=== PATIENT | male | born 1935 | race Caucasian/White ===

== ENCOUNTER 2017-02-25 09:13 | Inpatient (IN) | payer BC ==
--- NOTE | ~2017-02-25 | CN ---
Consultation Report [facility] [address] [place]. [address] NAME: OLIVER CAMACHO : 39 STATUS : ADM IN [facility]#: [id number] AGE: 81 ADM/REG DATE : 02/25/17 MR#: [id number] REPORT SERV DATE: 02/27/17 DICTATED BY: ASHTYN PRIETO DATE: 02/26/17 REPORT STATUS : Draft TRANSCRIBED BY: MODL DATE: 02/26/17 PULMONARY CONSULT DATE OF CONSULTATION: 02/26/2017 REASON FOR CONSULTATION: Repeat exacerbation of bronchiectasis. CHIEF COMPLAINT: Not feeling well with coughing up of sputum minimally. HISTORY OF PRESENT ILLNESS: Mr. Camacho is a 81-year-old gentleman with a past medical history noted below, who was followed by Dr. Pastor for underlying bronchiectasis and COPD. However, the patient is not a smoker. The patient states that he has had repeat pneumonias and has had to have a bronchoscopy around five years ago to clear out the mucus and so forth. He feel that he is back to this baseline in which he needs a bronchoscopy. He has been hypoxic at home. Not feeling well. He is getting antibiotics, but is unable to clear his secretions. Otherwise, he has been coughing. Minimal fevers are noted, however. CT scan shows diffuse right greater than left bronchiectasis with mucus in the bronchiectatic bronchi. Otherwise, no further complaints. PAST MEDICAL HISTORY: Bronchiectasis, however, the patient is unable to recall many other abnormalities. He does have some hearing loss and sleep apnea. HOME MEDICATIONS: The patient reports albuterol, Advair, Spiriva, Robitussin. ALLERGIES: NO KNOWN DRUG ALLERGIES. FAMILY HISTORY: The patient denies having any family history with regard to pulmonary family history. SOCIAL HISTORY: The patient is . The patient states he is a lifelong nonsmoker. No alcohol. REVIEW OF SYSTEMS: All pertinent review of systems reviewed and is otherwise negative. PHYSICAL EXAMINATION: VITAL SIGNS: Afebrile, heart rate 80s, respiratory rate normal, oxygen saturation around 97% on 2 L nasal cannula, blood pressure anywhere between 110 and 150. GENERAL: The patient is alert and oriented, no acute distress. HEENT: Mid neck is supple. No JVD. No lymphadenopathy. PULMONARY: Mild rhonchorous breath sounds, but otherwise, good air movement. CARDIAC: Regular rate, no murmurs. ABDOMEN: Soft, nontender, and nondistended. EXTREMITIES: No lower extremity edema. The patient is able to move all extremities without Consultation Report [address] [place]. [address] NAME: OLIVER CAMACHO : 39 STATUS : ADM IN [facility]#: [id number] AGE: 81 ADM/REG DATE : 02/25/17 MR#: [id number] REPORT SERV DATE: 02/27/17 DICTATED BY: ASHTYN PRIETO DATE: 02/26/17 REPORT STATUS : Draft TRANSCRIBED BY: MODJose Luis DATE: 02/26/17 any difficulty. LABORATORY EXAMINATION: No leukocytosis. INR 1.3. Procalcitonin negative. Good kidney function. IMAGING: As noted above. ASSESSMENT AND PLAN: Mr. Oliver Camacho is a 81-year-old gentleman with a past medical history of bronchiectasis who comes in with a bronchiectasis exacerbation. He has had abnormal microbiological studies in the past. The patient is currently on Rocephin and azithromycin along with Spiriva and albuterol. Our recommendations are below: 1. Continue mucociliary clearance with Dulera, albuterol, Spiriva. The patient has pretty good mobility. 2. Continue antibiotics with Rocephin and azithromycin. 3. We will conduct a bronchoscopy for airway clearance along with culture data. We will make this patient n.p.o. after midnight. Thank you very much for this consultation, may consider a flutter valve therapy inpatient. HFQ/MODL Ashtyn Prieto MD / [id number] CC: Bo Plascencia D.O. F.A.C.P.
--- NOTE | ~2017-02-25 | OP ---
Record Of Operation [facility] [address] [place]. [address] NAME: CECIL MCNAIR : 39 STATUS : ADM IN PAT#: [id number] AGE: 81 ADM/REG DATE : 02/25/17 MR#: [id number] REPORT SERV DATE: 02/27/17 DICTATED BY: ASHTYN PRIETO DATE: 02/27/17 REPORT STATUS : Draft TRANSCRIBED BY: MODL DATE: 02/27/17 DATE OF PROCEDURE: 02/27/2017 PROCEDURE: Bronchoscopy for bronchoalveolar lavage. INDICATION FOR PROCEDURE: The patient comes in with a bronchiectasis exacerbation, difficulty coughing up secretions. SEDATION: The patient underwent conscious sedation by Anesthesia. PROCEDURE NOTE: The patient was brought down to the bronchoscopy suite, we gave him nebulized lidocaine. Once we achieved good anesthetic control, the patient was given moderate sedation. We then were able to place the bronchoscope through the vocal cords. Prior to that, he had upper airway obstruction and patient has a known history of sleep apnea. We were able to insert lidocaine through the vocal cords into the airways and anesthetized the trachea. He had significant thick mucus plugs on the right side. Left side was essentially clear. We cleared the left-side and attempted to remove the mucus plugs. Prior to removing, we were able to obtain a bronchoalveolar lavage of the right upper lobe as we moved around the mucus plugs and obtained adequate sample. We then removed the trap and proceeded to removing the mucus plugs. They were very tenacious and difficult to remove. It took merely at 10 minutes to remove the mucus plugs. The right upper lobe mucus plug was removed by suction. With regard to the right middle lobe mucus plug, we almost use the forceps biopsy, but we were able to dislodge that without any use of forceps biopsy. However, after we removed the mucus plug, the patient had significant amount of secretions that were drained into the airways, which were suctioned, and BAL was obtained also from the right middle lobe for further culture data. We were able to completely remove all the central airway mucus plugs and the majority of secretions coming from the right upper lobe and right middle lobe. We then completed the procedure. Post procedure, the patient had significant amount of wheezing for which DuoNeb therapy, breathing treatment, did help reduce his bronchospastic change. OUTCOME: Successful bronchoscopy for bronchoalveolar lavage and mucus plug removal. HFQ/MODL Ashtyn Prieto MD / [id number] CC: Bo Bustillo D.O. F.A.C.P.
--- NOTE | ~2017-02-25 | DS ---
Discharge Summary [facility] [address] [place]. [address] NAME: CECIL MCNAIR : 39 STATUS : DIS IN PAT#: [id number] AGE: 81 ADM/REG DATE : 02/25/17 MR#: [id number] REPORT SERV DATE: 03/01/17 DICTATED BY: BALJINDER SMITH DATE: 02/28/17 REPORT STATUS : Draft TRANSCRIBED BY: MODL DATE: 02/28/17 ADMISSION DATE: 02/25/2017 DISCHARGE DATE: 02/28/2017 OUTPATIENT [facility]: Dr. Haywood CONSULTING PHYSICIAN: Dr. Prieto for Pulmonary. FINAL DIAGNOSES: 1. Acute hypoxic respiratory failure, improved. 2. Bronchiectasis with mucus plugging, status post washing. 3. Right-sided pneumonia. 4. Chronic obstructive pulmonary disease. 5. Obstructive sleep apnea. 6. Iron-deficiency anemia. DIAGNOSTIC EXAMS: Chest x-ray showing diffuse right lung infiltrate indicating possible pneumonia. CAT scan of the chest showing mucus plugging with consolidation in the right middle lobe. Additional regions of bronchiectasis with mucus plugging and airspace disease in the right lung apex. Stable borderline paratracheal lymph nodes. Small right pleural effusion. Large hiatal hernia. COPD. Repeat chest x-ray showing stable right lung infiltrate. HOSPITAL COURSE: Please refer to the H and P done by Dr. Calhoun dated on 02/25/2017. Briefly, this is a 81-year-old male with bronchiectasis, comes in with shortness of breath. The patient has been having chronic cough for years and has been having worsening cough for weeks. There was an increase in shortness of breath, but no fever. He went to the emergency room, found to be in acute hypoxic respiratory failure. The patient was given oxygen, and we got Pulmonary involved, and they did a bronchoscopy. They had a bronchoalveolar lavage and mucus plug removal, and according to him, it took him a long time to try to get rid of the mucus plugging and at the back of which there is some pus that he tried to remove. The patient was initially placed on broad-spectrum antibiotics. The bronchial washing revealed sparse gram-negative izzy and the patient clinically improved. We got clearance now from Pulmonary for the patient to be discharged on quinolones, and the patient will follow up with his Dr. Dannie Palma and Dr. Haywood in a week and in a month respectively. The patient will be on the following medications. Multivitamin once a day, Spiriva one capsule inhaled a day, ProAir p.r.n., Advair 500/50 one puff twice a day, Proventil as needed, Robitussin as needed, multivitamin once a day, Cipro 500 mg p.o. b.i.d. for 18 more days to complete 21 days of bronchiectasis pneumonia treatment. The patient's culture will be followed up by his doctors. This has been explained to the patient in front of the . They agreed and understood the plan. TIME SPENT: 35 minutes. Discharge Summary [address] [address] NAME: CECIL MCNAIR : 39 STATUS : DIS IN PAT#: [id number] AGE: 81 ADM/REG DATE : 02/25/17 MR#: [id number] REPORT SERV DATE: 03/01/17 DICTATED BY: BALJINDER SMITH DATE: 02/28/17 REPORT STATUS : Draft TRANSCRIBED BY: ASHLEIGH DATE: 02/28/17 DENNISE/ASHLEIGH Baljinder Smith M.D. / [id number] CC: Bo Bustillo D.O. F.A.C.P.
--- NOTE | ~2017-02-25 | HP ---
History And Physical [facility] [id number] [facility] [place]. [address] NAME: CECIL MCNAIR : 37 STATUS : ADM IN [facility]#: [id number] AGE: 81 ADM/REG DATE : 02/25/17 MR#: [id number] REPORT SERV DATE: 02/25/17 DICTATED BY: BALJINDER CALHOUN DATE: 02/25/17 REPORT STATUS : Draft TRANSCRIBED BY: MODL DATE: 02/25/17 DATE OF ADMISSION: 02/25/2017 IDENTIFYING DATA: A 81-year-old white male whose PCP is Dr. Bea Palma. VENEER STACKER: Sandie Haywood M.D. CHIEF COMPLAINT: Shortness of breath. HISTORY OF PRESENT ILLNESS: This history of present illness was obtained by talking directly with the patient as well as with his at bedside as well as with the ER physician, Dr. Dorsey, and I reviewed [employer] and [employer]. The patient states that he has had chronic cough for many years. He has a history of asthma and bronchiectasis. He also has a questionable history of aspergillosis. It was found in his sputum in the past, but apparently on bronchoscopy in 2011, there was not any evidence of it from what his tells me and I found the pathology report, there was no malignancy at that time on bronchoscopy, although at that time, there was concern because he had what appeared to be a soft tissue mass in the right upper bronchus and mucus plugging into other bronchi. Again, the biopsies were benign. The patient states for weeks, he has been gradually having worsening cough, worsening sputum, it is torres in color. No hemoptysis. He has had increased shortness of breath. No fever. Because of this, he finally came to the emergency room and was found to have an O2 saturation of 85 to 88% on room air. He improved with oxygen supplementation, but every time they took him off, his O2 saturation would drop again to the mid 80s. He also was found to have a new infiltrate in his right lung, so because of these reasons, we were asked to see him and admit him. REVIEW OF SYSTEMS: He has intermittent nocturia one to two times per night. He has some epigastric and mid chest pain that occurs with cough. He denies sore throat, abdominal pain, nausea, vomiting, diarrhea, rectal bleeding, melena, dysuria, urinary hesitancy, peripheral edema, rash, tick bites, headaches, weight changes, or any recent falls. He states he is up-to-date on his flu shot and his pneumonia vaccine, and he does not wear home oxygen. ALLERGIES: NO KNOWN DRUG ALLERGIES. PAST MEDICAL HISTORY: He denies any history of diabetes, heart disease, stroke, seizure, peptic ulcer, biliary tract disease, liver disease, chronic kidney disease, thyroid disease, or tuberculosis. In the chart, it mentions a history of multiple myeloma, but he states that his corroborates that they have never heard of that. He has had some basal cell cancer on an History And Physical [address] [address] NAME: CECIL MCNAIR : 39 STATUS : ADM IN [facility]#: [id number] AGE: 81 ADM/REG DATE : 02/25/17 MR#: [id number] REPORT SERV DATE: 02/25/17 DICTATED BY: BALJINDER CALHOUN DATE: 02/25/17 REPORT STATUS : Draft TRANSCRIBED BY: ASHLEIGH DATE: 02/25/17 ear and he has had a tubular adenoma, but no malignancies. He has had a history of iron deficiency anemia. He is hard of hearing, but is compensated by hearing aids. He has a lifelong facial tic. He has a history of obstructive sleep apnea, for which he refuses to wear a CPAP. HOME MEDICATIONS: Albuterol handheld or nebulized p.r.n., Advair Diskus 500/50 a puff twice a day, multivitamin once a day, Spiriva one capsule inhaled daily, and Robitussin over-the- counter q.4 hours p.r.n. cough. PAST SURGICAL HISTORY: He has had a TURP and no other surgeries. SOCIAL HISTORY: He is . He is retired from [employer]. He has no tobacco or alcohol intake history. He walks without an assistive device. His is at the bedside. FAMILY HISTORY: Mother with old age. Father with colon cancer. He is an only child. DIAGNOSTIC DATA: Chest x-ray done today as a single portable film reveals some chronic scarring in the upper lung verma, but he has a hazy area obscuring the right heart border and going out laterally, which looks like an infiltrate, also somewhat extends up into the right upper and right middle lobe as my interpretation. EKG done today at 0740 hours reveals sinus rhythm and it is a normal EKG per my interpretation. Sodium 141, potassium 4.5, chloride 103, CO2 is 34, BUN 11, creatinine 0.83, glucose 112, calcium 9.2, albumin is 2.6. The rest of the CMP is normal. His white count is 9.2, hemoglobin 11.8, and platelets are 288,000. Protime is 16.6, INR 1.4, PTT is 28.5. PHYSICAL EXAMINATION: VITAL SIGNS: Temp is 98, pulse 90, respirations 23, blood pressure 120/70, O2 saturation is currently 93% on 3 liters. GENERAL: Well-developed male, who appears in no acute distress. HEENT: Head is atraumatic. Pupils are equal, round, and reactive to light. Extraocular motions are intact. No scleral icterus noted. Ears with hearing aids bilaterally. No inflammatory changes noted externally. Nose, noninflamed externally. Septum midline. Nares patent. Mouth, moist. Good gag. No redness of the throat, gums, or lips. NECK: Supple. No lymph node or thyroid enlargement. The carotids have good pulses. No bruits. LUNGS: With crackles bilaterally in the bases and up two-thirds of the way on the right side with good air flow in the apices and mildly increased respiratory effort. HEART: Regular rate and rhythm without murmur, gallop, click, or rub. ABDOMEN: Bowel sounds positive. Soft, nondistended, nontender. No masses. No organomegaly. EXTREMITIES: Warm. Good pulses. No clubbing, no cyanosis, no edema. No actively inflamed skin or joints. NEUROLOGIC: Alert, oriented, and cooperative with grossly normal mentation, speech as well as motor and cranial nerves 2 through 12 other than diminished hearing which is compensated by the hearing aids. History And Physical [address] [address] NAME: CECIL MCNAIR MOUNA : 39 STATUS : ADM IN [facility]#: [id number] AGE: 81 ADM/REG DATE : 02/25/17 MR#: [id number] REPORT SERV DATE: 02/25/17 DICTATED BY: BALJINDER CALHOUN DATE: 02/25/17 REPORT STATUS : Draft TRANSCRIBED BY: MODL DATE: 02/25/17 ASSESSMENT: 1. Acute hypoxic respiratory failure. 2. New right lung infiltrate that could represent a community-acquired pneumonia. Also, could be an opportunistic organisms such as aspergillosis and also could be hemoptysis, although I would have expected him to have seen it in the sputum. 3. Chronic bronchiectasis with long-term asthma. 4. Known obstructive sleep apnea. 5. Prolonged INR without good explanation, but may be nutritional. 6. History of iron deficiency anemia. 7. Obstructive sleep apnea, not compliant with CPAP. PLAN: 1. Admit to a cardiac telemetry bed. 2. Get blood cultures. Also, we are going to get sputum, Gram stain, C and S. We will check procalcitonin and urine antigens for strep and Legionella. We are going to start him empirically on Rocephin and azithromycin. We will continue nebulizer therapy and supplementation with oxygen. We will get a blood gas. We will also get a CT scan of his chest. is updated at the bedside at this time. MG/ASHLEIGH Baljinder Calhoun M.D. / [id number] CC: Bo Plascencia D.O. F.A.C.P. Pamela Sud, M.D.
[2017-02-25 08:57] LABS: BASOPHILS 0.8 %; BASOPHILS ABSOLUTE 0.07 10/3/uL (0.0-0.16); EOSINOPHILS 5.2 %; EOSINOPHILS ABSOLUTE 0.48 10/3/uL (0.0-0.53); HEMATOCRIT 35.5 % (40.0-51.0); HEMOGLOBIN 11.8 g/dL (13.6-17.8); IMMATURE GRANULOCYTES 0.1 %; IMMATURE GRANULOCYTES ABSOLUTE 0.01 10/3/uL (0.0-0.11); LYMPHOCYTES 9.8 %; MEAN CORPUS HGB CONC 33.2 g/dL (32.0-36.0); MEAN CORPUSCULAR HEMOGLOB 30.3 pg (26.0-34.0); MEAN CORPUSCULAR VOLUME 91.3 fL (80-100); MEAN PLATELET VOLUME 9.5 fL (9.2-13.0); MONOCYTES 10.9 %; NEUTROPHILS 73.2 %; NEUTROPHILS ABSOLUTE 6.69 10/3/uL (2.02-8.40); PLATELET COUNT 288 10/3/uL (150-400); RED CELL COUNT 3.89 10/6/uL (4.7-6.1); WHITE BLOOD CELLS 9.2 10/3/uL (4.5-10.5)
[2017-02-25 08:58] LABS: MANUAL DIFF NO %
[2017-02-25 09:05] LABS: INTERNATIONAL NORMAL RATI 1.4 UNITS (-); PROTIME (NOT ORD) 16.6 SEC (12.0-14.5)
[2017-02-25 09:11] LABS: A/G RATIO 0.4 (0.7-1.9); ALBUMIN 2.6 G/DL (3.5-5.0); ALKALINE PHOSPHATASE 67 U/L (45-117); BUN (BLOOD UREA NITROGEN) 11 MG/DL (6-23); CALCIUM, SERUM 9.2 MG/DL (8.5-10.4); CHLORIDE, SERUM 103 MMOL/L (96-112); CO2 (CARBON DIOXIDE) 34 MMOL/L (24-34); CREATININE 0.83 MG/DL (0.70-1.30); GFR AFRICAN AMERICAN 97 ML/MIN (>=60); GFR NON AFRICAN AMERICAN 84 ML/MIN (>=60); GLOBULIN 5.9 G/DL (2.5-4.1); GLUCOSE, SERUM 112 MG/DL (60-99); POTASSIUM, SERUM 4.5 MMOL/L (3.5-5.3); SGOT(AST) 12 U/L (5-40); SGPT(ALT) 13 U/L (5-65); SODIUM, SERUM 141 MMOL/L (135-148); TOTAL BILIRUBIN 0.7 MG/DL (0-1.2); TOTAL PROTEIN 8.5 G/DL (6.0-8.5)
[~2017-02-25 09:13] MED LIST: ADVAIR250 INH; CEFT5 PO; CENTRUM TAB1 TAB PO; CLARIT10 PO; COMBIVENT INH; GGDM5ML PO; HYDROCHLOROT12.5 MG PO; LEVAQUIN750 MG PO; MUCINEX D1 TA1 OR; MUCINEX PO; MULTIVIT/MIN PO; P1 PO; P10 PO; P20 PO; PROAIR HFA INH; PROTONIX PO; PROVHFA INH; SPIRIVA INH; STERAPDS12; VIB100 PO; Z-PAK PO
[2017-02-25] MEDS ORDERED: ROBITUSSIN PO (11:17)
[2017-02-25] MEDS ORDERED: ADVAIR INH (11:17)
[2017-02-25] MEDS ORDERED: CENTRUM PO (11:18)
[2017-02-25] MEDS ORDERED: SPIRIVA INH (11:18)
[2017-02-25] MEDS ORDERED: PROAIR HFA PO (11:18)
[2017-02-25] MEDS ORDERED: ALBUTEROL5 INH (11:18)
[2017-02-25 13:43] LABS: TROPONIN I <0.02 NG/ML (<0.05)
[2017-02-25 16:05] LABS: ALLENS TEST Pos; BE (BASE EXCESS) 3.2 MEQ/L (0 +/- 2.5); CARBOXYHEMOGLOBIN 0.8 % (0-3); HCO3 (ACTUAL BICARBONATE) 28.1 MEQ/L (23-27); HEMOBLOGIN CONTENT 13.6 G/DL (14-18); INSTRUMENT SERIAL # 8083; METHEMOGLOBIN 0.2 % (0-3); O2 CONTENT 17.5 VOL% (18-24); PCO2 (CO2 TENSION) 44 MMHG (35-45); PO2 (O2 TENSION) 64 MMHG (79-93); SAMPLE Arterial; pH 7.42 (7.37-7.43)
[2017-02-25 17:14] LABS: TROPONIN I <0.02 NG/ML (<0.05)
[2017-02-25 17:43] LABS: PROCALCITONIN <0.05 ng/mL (<0.5)
[2017-02-26 05:54] LABS: BASOPHILS 0.1 %; BASOPHILS ABSOLUTE 0.01 10/3/uL (0.0-0.16); EOSINOPHILS 0 %; HEMOGLOBIN 11.5 g/dL (13.6-17.8); IMMATURE GRANULOCYTES 0.1 %; IMMATURE GRANULOCYTES ABSOLUTE 0.01 10/3/uL (0.0-0.11); LYMPHOCYTES 8.4 %; LYMPHOCYTES ABSOLUTE 0.77 10/3/uL (0.67-4.30); MEAN CORPUS HGB CONC 33.8 g/dL (32.0-36.0); MEAN CORPUSCULAR HEMOGLOB 30.7 pg (26.0-34.0); MEAN CORPUSCULAR VOLUME 90.7 fL (80-100); MEAN PLATELET VOLUME 9.7 fL (9.2-13.0); MONOCYTES 8.7 %; NEUTROPHILS 82.7 %; NEUTROPHILS ABSOLUTE 7.59 10/3/uL (2.02-8.40); PLATELET COUNT 262 10/3/uL (150-400); RBC DISTRIBUTION WIDTH 14.9 % (12.0-16.0); RED CELL COUNT 3.75 10/6/uL (4.7-6.1); WHITE BLOOD CELLS 9.2 10/3/uL (4.5-10.5)
[2017-02-26 05:56] LABS: MANUAL DIFF NO %
[2017-02-26 06:10] LABS: CALCIUM, SERUM 8.7 MG/DL (8.5-10.4); CHLORIDE, SERUM 104 MMOL/L (96-112); CREATININE 0.82 MG/DL (0.70-1.30); GFR AFRICAN AMERICAN 97 ML/MIN (>=60); GFR NON AFRICAN AMERICAN 84 ML/MIN (>=60); SODIUM, SERUM 140 MMOL/L (135-148)
[2017-02-26 06:13] LABS: BUN (BLOOD UREA NITROGEN) 20 MG/DL (6-23); CO2 (CARBON DIOXIDE) 28 MMOL/L (24-34); GLUCOSE, SERUM 164 MG/DL (60-99)
[2017-02-26 12:50] LABS: INTERNATIONAL NORMAL RATI 1.3 UNITS (-); PROTIME (NOT ORD) 15.7 SEC (12.0-14.5)
[2017-02-27 06:11] LABS: INTERNATIONAL NORMAL RATI 1.3 UNITS (-); PROTIME (NOT ORD) 16.1 SEC (12.0-14.5)
[2017-02-27 06:13] LABS: BASOPHILS 0.9 %; BASOPHILS ABSOLUTE 0.09 10/3/uL (0.0-0.16); EOSINOPHILS 7.8 %; EOSINOPHILS ABSOLUTE 0.77 10/3/uL (0.0-0.53); HEMATOCRIT 33.6 % (40.0-51.0); HEMOGLOBIN 10.9 g/dL (13.6-17.8); IMMATURE GRANULOCYTES 0.1 %; IMMATURE GRANULOCYTES ABSOLUTE 0.01 10/3/uL (0.0-0.11); LYMPHOCYTES 17.5 %; LYMPHOCYTES ABSOLUTE 1.74 10/3/uL (0.67-4.30); MEAN CORPUS HGB CONC 32.4 g/dL (32.0-36.0); MEAN CORPUSCULAR HEMOGLOB 29.6 pg (26.0-34.0); MEAN CORPUSCULAR VOLUME 91.3 fL (80-100); MONOCYTES 8.2 %; MONOCYTES ABSOLUTE 0.81 10/3/uL (0.21-1.20); NEUTROPHILS 65.5 %; PLATELET COUNT 248 10/3/uL (150-400); RBC DISTRIBUTION WIDTH 15.1 % (12.0-16.0); RED CELL COUNT 3.68 10/6/uL (4.7-6.1); WHITE BLOOD CELLS 9.9 10/3/uL (4.5-10.5)
[2017-02-27 06:15] LABS: MANUAL DIFF NO %
[2017-02-27 06:26] LABS: BUN (BLOOD UREA NITROGEN) 20 MG/DL (6-23); CALCIUM, SERUM 8.5 MG/DL (8.5-10.4); CHLORIDE, SERUM 106 MMOL/L (96-112); CO2 (CARBON DIOXIDE) 27 MMOL/L (24-34); CREATININE 0.78 MG/DL (0.70-1.30); GFR AFRICAN AMERICAN 100 ML/MIN (>=60); GFR NON AFRICAN AMERICAN 86 ML/MIN (>=60); POTASSIUM, SERUM 4.3 MMOL/L (3.5-5.3); SODIUM, SERUM 143 MMOL/L (135-148)
[2017-02-27 06:27] LABS: GLUCOSE, SERUM 89 MG/DL (60-99)
[2017-02-27 16:26] LABS: BD FL LYMPH (NOT ORD) 0 %; BF BASO (NOT OF) 0 %; BF LARGE MONONUCLEAR 7 %; BF TOTAL CELL CT (NOT ORD 12611 /MM3; BODY FLUID EOS (NOT ORD) 2 %; BODY FLUID RBC (NOT ORD) 11000 /MM3; BODY FLUID SEG (NOT ORD) 91 %
[2017-02-27 16:27] LABS: BD FL SOURCE (NOT ORD) RLL-BAL
[2017-02-28] MEDS ORDERED: CIP5 PO (14:16)
== END 2017-02-28 14:48 | disposition home or self-care (01) | DRG 166 ==
LOC: ER 09:13 → 2SO 12:18
PROVIDERS: Emergency Medicine; Hospitalist; Internal Medicine Critical Care Medicine
PROC: 5A09457 Assistance with Respiratory Ventilation, 24-96 Consecutive Hours, Continuous Positive Airway Pressure (ICD-10-PCS; principal; 2017-02-25)
PROC: 0B9C8ZX Drainage of Right Upper Lung Lobe, Via Natural or Artificial Opening Endoscopic, Diagnostic (ICD-10-PCS; principal; 2017-02-25)
PROC: 0BC48ZZ Extirpation of Matter from Right Upper Lobe Bronchus, Via Natural or Artificial Opening Endoscopic (ICD-10-PCS; 2017-02-25)
DX: J96.21 Acute and chronic respiratory failure with hypoxia (principal); J18.9 Pneumonia, unspecified organism; T17.890A Other foreign object in other parts of respiratory tract causing asphyxiation, initial encounter; C90.00 Multiple myeloma not having achieved remission; J47.1 Bronchiectasis with (acute) exacerbation; J44.9 Chronic obstructive pulmonary disease, unspecified; D50.9 Iron deficiency anemia, unspecified; G47.33 Obstructive sleep apnea (adult) (pediatric); Z80.0 Family history of malignant neoplasm of digestive organs; Z80.9 Family history of malignant neoplasm, unspecified
CPT/HCPCS: 36600; 71010; 71260; 80048; 80053; 82805; 83605; 83880; 84145; 84484; 85025; 85610; 87015; 87040; 87070; 87077; 87102; 87116; 87186; 87205; 87449; 88112; 89051; 93005; 94640; 94667; 94668; 96365; 96375; 99285; A9270-GY; J0456; J2930; Q9967